=== PATIENT | male | born 1995 | race African-American/Black ===

== ENCOUNTER 2017-07-09 11:26 | Emergency (ER) | payer OTHER ==
[~2017-07-09] VITALS: Ht 177.8 cm; Wt 88.6 kg
[2017-07-09 11:27] VITALS: BP 146/78; PULSE 72; RESP 16; TEMP 98.9; O2SAT 98
--- NOTE | 2017-07-09 12:14 | PD ---
HPI Chief Complaint: Cold / Flu Symptoms Time Seen by Provider: 12:09 Travel History International Travel<30 days: No Contact w/Intl Traveler<30days: No Traveled to known affect area: No History of Present Illness HPI 22-year-old male presents to the emergency room for evaluation of chills, nausea , vomiting, diarrhea, sore throat, congestion, body aches, and nonproductive cough at all started together last night. Patient denies any objective fevers. Denies any chronic medical conditions or daily medications. He has not taken anything for symptoms. [facility] Social History Tobacco Use: No Review of Systems Except as stated in HPI: all other systems reviewed are Neg Physical Exam Narrative GENERAL: Well-nourished, well-developed male in no acute distress. Afebrile. Ambulatory. SKIN: Focused skin assessment warm/dry. HEAD: Normocephalic. EYES: No scleral icterus. No injection or drainage. NECK: Supple, trachea midline. No JVD or lymphadenopathy. ENT: Mucosa pink and moist. No significant erythema or exudates. No uvular edema. No uvular, palatal, or tonsillar deviation. Airway patent. Nasal turbinates appear normal without nasal blood, purulent drainage or septal hematoma. EARS: Bilateral pinnae and external canals appear within normal limits. Bilateral tympanic membranes without erythema, dullness or perforation. CARDIOVASCULAR: Regular rate and rhythm without murmurs, gallops, or rubs. RESPIRATORY: Breath sounds equal bilaterally. No accessory muscle use. No crackles, rales, wheezes, or rhonchi. Data Data Last Documented VS Vital Signs Date Time Temp Pulse Resp B/P (MAP) Pulse Ox O2 Delivery O2 Flow Rate FiO2 07/09/17 11:27 98.9 72 16 146/78 (100) 98 Room Air Orders Orders Influenzae A/B Antigen (07/09/17 12:09) Ed Discharge Order (07/09/17 13:09) MDM Medical Decision Making Medical Screen Exam Complete: Yes Emergency Medical Condition: Yes Medical Record Reviewed: Yes Differential Diagnosis URI, viral syndrome, pneumonia, flu Narrative Course 22-year-old otherwise healthy male presents to the emergency room for evaluation of nonproductive cough, congestion, sore throat, body aches, nausea, vomiting, and diarrhea since last night. Patient is afebrile well-appearing in the emergency room. Vital signs stable. Resting comfortably. Physical exam are reassuring. Influenza is negative. This is viral syndrome. Patient discharged with instructions to follow up with PCP or return for worsening symptoms. He understands and agrees to plan. Diagnosis Primary Impression: Viral syndrome Referrals: Primary Care Physician Additional Instructions: Rest and drink plenty of fluids. Continue [id number] cough and cold medications for symptoms. Take ibuprofen with food as directed, as needed for pain. Follow-up with a primary care physician. Return to the emergency room for worsening symptoms. Med/Other Pt SpecificInfo: Prescription(s) given Disposition: 01 DISCHARGE HOME Condition: Stable Jennifer Solomon Jul 09, 2017 12:14
== END 2017-07-09 13:23 | disposition home or self-care (01) ==
LOC: NEPK 11:26
DX: B34.9 Viral infection, unspecified (principal)
CPT/HCPCS: 87804; 99283

== ENCOUNTER 2017-10-06 08:55 | Emergency (ER) | payer OTHER ==
[~2017-10-06] VITALS: Ht 182.9 cm; Wt 100.0 kg
[2017-10-06 09:14] VITALS: BP 138/76; PULSE 68; RESP 18; TEMP 98.1; O2SAT 99
[2017-10-06 09:17] VITALS: BP 138/76; PULSE 68; RESP 18; TEMP 98.1; O2SAT 99
--- NOTE | 2017-10-06 09:26 | PD ---
HPI Chief Complaint: Bite or Sting Time Seen by Provider: 09:21 Travel History International Travel<30 days: No Contact w/Intl Traveler<30days: No Traveled to known affect area: No History of Present Illness HPI 22-year-old male was brought to the emergency room by a police cadet after he was bitten by his dog during an altercation. He is in the custody of the police cadet because of being in possession of marijuana. He was bit by his own dog. As per the patient the dog is vaccinated and can be watched. The bite wounds are mostly on his left leg. This happened about an hour prior to coming to the emergency room. There are a few open wounds. Vital signs are stable. Patient does not recall his last tetanus shot. [facility] Past Medical History Narrative Medical List of his past medical, surgical, social and family history is reviewed from the nursing note. Medical History: Denies Significant Hx ?: Not Past Surgical History Surgical History: No Previous Surgery Social History Alcohol Use: No Tobacco Use: No Substance Use: No Allergies-Medications (Allergen,Severity, Reaction): Coded Allergies: No Known Allergies (Unverified , 10/07/17) Comments No known drug allergies Reported Meds & Prescriptions Reported Meds & Active Scripts Active Mupirocin Topical (Mupirocin) 2 % Oint 1 Applic TOPICAL BID Tramadol (Tramadol HCl) 50 Mg Tab 50 Mg PO Q4H PRN Augmentin (Amoxicillin-Clavulanate) 875-125 Mg Tab 1 Tab PO BID 14 Days Ibuprofen 800 Mg Tab 800 Mg PO Q6HR PRN Narrative Medication Awaiting for the nurse to the med reconciliation. Review of Systems Except as stated in HPI: all other systems reviewed are Neg Physical Exam Narrative GENERAL: Awake, alert, moderate distress SKIN: Focused skin assessment warm/dry. Multiple small and deep punctures and laceration on the left leg distal to the knee and few in the distal thigh area. None of them are actively bleeding. One is about 2 x 2 centimeters wide with an open flap. Rest of them are smaller and superficial. There is one deeper puncture wound in the medial aspect of the distal thigh. HEAD: Atraumatic. Normocephalic. EYES: Pupils equal and round. No scleral icterus. No injection or drainage. ENT: No nasal bleeding or discharge. Mucous membranes pink and moist. NECK: Trachea midline. No JVD. CARDIOVASCULAR: Regular rate and rhythm. No murmur appreciated. RESPIRATORY: No accessory muscle use. Clear to auscultation. Breath sounds equal bilaterally. GASTROINTESTINAL: Abdomen soft, non-tender, nondistended. Hepatic and splenic margins not palpable. MUSCULOSKELETAL: No obvious deformities. No clubbing. No cyanosis. No edema. NEUROLOGICAL: Awake and alert. No obvious cranial nerve deficits. Motor grossly within normal limits. Normal speech. PSYCHIATRIC: Appropriate mood and affect; insight and judgment normal. Data Data Last Documented VS Vital Signs Date Time Temp Pulse Resp B/P (MAP) Pulse Ox O2 Delivery O2 Flow Rate FiO2 10/06/17 11:06 72 16 124/72 (89) 98 10/06/17 09:17 98.1 Room Air Orders Orders Amoxicil-Clavulanate (Augmentin) (10/06/17 09:45) Ibuprofen (Motrin) (10/06/17 09:45) Tibia/Fibula (Ap/Lat) (10/06/17 ) Knee, Complete (4vws) (10/06/17 ) Tetanus/Diphtheria Tox Adult (Tetanus/Di (10/06/17 09:45) Ed Discharge Order (10/06/17 10:31) MDM Medical Decision Making Medical Screen Exam Complete: Yes Emergency Medical Condition: Yes Medical Record Reviewed: Yes Differential Diagnosis Dog bite wound Narrative Course 10:28 AM My nurse practitioner will irrigate and repair the wounds. Please refer to her procedure note. Patient has been given a dose of Augmentin and IM tetanus. He was also given Motrin for pain control. He has been given the instructions for watching out for unknown infection. Patient will be discharged home after the procedure. There was an x-ray of the knee and tib- fib done which is negative for fracture. Per the radiologist there is some subcutaneous air. Procedures EKG Prior to Arrival: No Diagnosis Primary Impression: dog bite wound to the leg Additional Impression: Bite wound from mammal Referrals: Primary Care Physician Additional Instructions: The stitches need to be taken out in 5-7 days. Please return to the ER if the wound starts to look infected. Take the antibiotic as per the prescription direction. He needs to be watched for next 14 days. If it starts to act unusual or dies then animal control needs to be notified and you need to come back to get rabies shots. Med/Other Pt SpecificInfo: Prescription(s) given Disposition: 01 DISCHARGE HOME Condition: Stable Chet Abbasi MD Oct 06, 2017 09:26
[2017-10-06] MEDS ORDERED: AMOXICILLIN/CLAVULANATE K 500 MG TAB PO ONE (09:45)
[2017-10-06] MEDS ORDERED: TETANUS/DIPHTHERIA TOXOID ADULT 0.5 ML VIAL IM ONE (09:45)
[2017-10-06] MEDS ORDERED: IBUPROFEN 800 MG TAB PO ONE (09:45)
--- NOTE | 2017-10-06 10:09 | RADRPT ---
EXAM DATE/TIME: 10/06/2017 09:41 [facility] COMPARISON: No previous studies available for comparison. INDICATIONS : Dog Bite, Medial side of left knee. MEDICAL HISTORY : None. SURGICAL HISTORY : None. ENCOUNTER: Initial ACUITY: 1 day PAIN SCORE: 9/10 LOCATION: Left medial Left knee FINDINGS: Two view examination of the left tibia demonstrates no evidence of fracture or dislocation. Minimal subcutaneous air is present. Bony mineralization is normal. The soft tissue structures are intact. CONCLUSION: Minimal subcutis air, negative for foreign body. Knee x-rays may be of benefit.. Manav Olivier MD FACR on October 06, 2017 at 10:08 Board Certified Radiologist. This report was verified electronically.
--- NOTE | 2017-10-06 10:10 | RADRPT ---
EXAM DATE/TIME: 10/06/2017 09:50 [facility] COMPARISON: No previous studies available for comparison. INDICATIONS : Dog Bite, Medial side of Left knee MEDICAL HISTORY : None. SURGICAL HISTORY : None. ENCOUNTER: Initial ACUITY: 1 day PAIN SCORE: 6/10 LOCATION: Left medial Knee FINDINGS: Minimal air in the subcutaneous tissues. No definite air within the joint space. No radiopaque fore ign body CONCLUSION: Subcutaneous air otherwise negative. Manav Olivier MD FACR on October 06, 2017 at 10:08 Board Certified Radiologist. This report was verified electronically.
[2017-10-06] MEDS ORDERED: AUGM500T7 PO (10:31)
--- NOTE | 2017-10-06 10:41 | PD ---
Physical Exam Time Seen by Provider: 10:38 Narrative I was asked to repair the laceration to the back of the left calf and clean the wounds. Data Data Last Documented VS Vital Signs Date Time Temp Pulse Resp B/P (MAP) Pulse Ox O2 Delivery O2 Flow Rate FiO2 10/06/17 09:17 98.1 68 18 138/76 (96) 99 Room Air Orders Orders Amoxicil-Clavulanate (Augmentin) (10/06/17 09:45) Ibuprofen (Motrin) (10/06/17 09:45) Tibia/Fibula (Ap/Lat) (10/06/17 ) Knee, Complete (4vws) (10/06/17 ) Tetanus/Diphtheria Tox Adult (Tetanus/Di (10/06/17 09:45) Ed Discharge Order (10/06/17 10:31) MDM Supervised Visit with SARAH: No Narrative Course The dog bite wounds were irrigated with normal saline and cleaned with Hibiclens. The dog bite wounds to the inner left thigh were left open. See my procedure note for laceration repair. Procedures Procedure Narrative LACERATION LOCATION: Left calf LENGTH: 1.5 cm NUMBER OF STITCHES/MELLO: 2 simple interrupted sutures; sutures were placed loosely REPAIR: The area of the laceration was prepped with Betadine and sterilely draped. The laceration was infiltrated with 1% lidocaine. The wound was copiously irrigated and explored without evidence of foreign body, tendon injury or neurovascular injury. The wound was closed using 4-0 Prolene. This was a single layer repair. A sterile dressing was applied. The patient was advised to keep the dressing clean and dry. Patient tolerated the procedure well. Diagnosis Primary Impression: dog bite wound to the leg Additional Impression: Bite wound from mammal Referrals: Primary Care Physician Patient Instructions: General Instructions Departure Forms: Tests/Procedures Additional Instruction: The stitches need to be taken out in 5-7 days. Please return to the ER if the wound starts to look infected. Take the antibiotic as per the prescription direction. He needs to be watched for next 14 days. If it starts to act unusual or dies then animal control needs to be notified and you need to come back to get rabies shots. Scripts Amoxicillin-Clavulanate (Augmentin) 500-125 mg Tab 500 MG PO BID for Infection for 10 Days, TAB 0 Refills Prov: Ayleen,Shravanti R. MD 10/06/17 Disposition: 01 DISCHARGE HOME Condition: Stable Margy Quezada [facility] Oct 06, 2017 10:41
[2017-10-06 11:06] VITALS: BP 124/72
[2017-10-07] MEDS ORDERED: MUPI2OIN TOPICAL (09:55)
[2017-10-07] MEDS ORDERED: IBUP1TAB7 PO (09:55)
[2017-10-07] MEDS ORDERED: TRAM50TA PO (09:55)
[2017-10-07] MEDS ORDERED: AUGM875T3 PO (09:55)
== END 2017-10-06 11:08 | disposition home or self-care (01) ==
LOC: NEPD 08:55
DX: S81.852A Open bite, left lower leg, initial encounter (principal); W54.0XXA Bitten by dog, initial encounter; Z23 Encounter for immunization
CPT/HCPCS: 12001; 73564; 73590; 90471; 90714

== ENCOUNTER 2017-10-07 08:12 | Emergency (ER) | payer OTHER ==
[~2017-10-07] VITALS: Ht 180.3 cm; Wt 82.0 kg
[~2017-10-07 08:12] MED LIST: AUGM500T7 PO
[2017-10-07 08:14] VITALS: BP 140/65; PULSE 75; RESP 16; TEMP 98.7; O2SAT 100
[2017-10-07] MEDS ORDERED: MORPHINE SULFATE 4 MG/ML INJ IV PUSH ONE (09:15)
[2017-10-07] MEDS ORDERED: SODIUM CHLOR 0.9% 1000 ML INJ 1,000 ML IV ONE (09:15)
[2017-10-07] MEDS ORDERED: SODIUM CHLORIDE 0.9% FLUSH 10 ML FLUSH IV FLUSH PRN (09:15)
[2017-10-07] MEDS ORDERED: ONDANSETRON HCL 4 MG/2 ML VIAL IV PUSH ONE (09:15)
[2017-10-07] MEDS ORDERED: AMPICILLIN-SULBACTAM INJ 3 GM in SODIUM CHLORIDE 0.9% INJ 100 ML IV ONE (09:15)
--- NOTE | 2017-10-07 09:25 | PD ---
HPI Chief Complaint: Bite or Sting Time Seen by Provider: 08:50 Travel History International Travel<30 days: No Contact w/Intl Traveler<30days: No Traveled to known affect area: No History of Present Illness HPI 22-year-old male presents to the emergency department with complaint of swelling , redness and increased pain to a dog bite wound to his left inner thigh and calf that occurred yesterday. I did see this patient yesterday and he was under police custody when he arrived. The patient was seen by Dr. Mendoza and I did the wound irrigation and repair. The patient reports vomiting one time last night and relates it to taking the antibiotic on an empty stomach. He was released from custody late last night and turned his prescription and this morning and has not taken any more of the antibiotic, other than what was given to him yesterday in the ER. He reports subjective fever last night. Denies paresthesias, loss of sensation to the affected extremity. Has not taken any other medication or tried any other treatments to alleviate his symptoms. His tetanus was updated yesterday. Rates pain 10/10. Describes it as throbbing. No known aggravating or relieving factors. No known allergies. No primary care provider. Denies significant past medical history. Has no other medical complaints. No other modifying factors or associated signs and symptoms. PFSH Social History Alcohol Use: No Tobacco Use: No Substance Use: No Allergies-Medications (Allergen,Severity, Reaction): Coded Allergies: No Known Allergies (Unverified , 10/07/17) Reported Meds & Prescriptions Reported Meds & Active Scripts Active Mupirocin Topical (Mupirocin) 2 % Oint 1 Applic TOPICAL BID Tramadol (Tramadol HCl) 50 Mg Tab 50 Mg PO Q4H PRN Augmentin (Amoxicillin-Clavulanate) 875-125 Mg Tab 1 Tab PO BID 14 Days Ibuprofen 800 Mg Tab 800 Mg PO Q6HR PRN Review of Systems Except as stated in HPI: all other systems reviewed are Neg Physical Exam Narrative GENERAL: Well-nourished, well-developed black male patient, in no acute distress ; afebrile, nontoxic-appearing SKIN: Warm and dry. Multiple small puncture wounds noted to the left inner thigh; puncture wound to the left upper calf with sutures intact; area is surrounded with erythema, warmth to touch, and mildly edematous; minimal amount of serosanguineous drainage noted; no lymphangitis. Left lower extremity is supple and nontense with 2+ pedal pulses and sensory intact. HEAD: Atraumatic. Normocephalic. EYES: Pupils equal and round. No scleral icterus. No injection or drainage. ENT: Mucosa pink and moist. Airway patent. NECK: Trachea midline. CARDIOVASCULAR: Regular rate. RESPIRATORY: No accessory muscle use. GASTROINTESTINAL: Flat. MUSCULOSKELETAL: No obvious deformities. No clubbing. No cyanosis. No edema. NEUROLOGICAL: Awake and alert. Oriented 3. No obvious cranial nerve deficits. Motor grossly within normal limits. Normal speech. PSYCHIATRIC: Appropriate mood and affect; insight and judgment normal. Data Data Last Documented VS Vital Signs Date Time Temp Pulse Resp B/P (MAP) Pulse Ox O2 Delivery O2 Flow Rate FiO2 10/07/17 08:14 98.7 75 16 140/65 (90) 100 Orders Orders Complete Blood Count With Diff (10/07/17 09:03) Iv Access Insert/Monitor (10/07/17 09:03) Sodium Chloride 0.9% Flush (Ns Flush) (10/07/17 09:15) Blood Culture (10/07/17 09:03) Sodium Chlor 0.9% 1000 Ml Inj (Ns 1000 M (10/07/17 09:15) Ampicillin-Sulbactam Inj (Unasyn Inj) (10/07/17 09:15) Morphine Inj (Morphine Inj) (10/07/17 09:15) Ondansetron Inj (Zofran Inj) (10/07/17 09:15) Wound Culture And Gram Stain (10/07/17 09:08) Crutches (10/07/17 10:11) Ed Discharge Order (10/07/17 10:11) Wound Care (10/07/17 10:11) Labs Laboratory Tests Test 10/07/17 09:25 White Blood Count 15.6 TH/MM3 Red Blood Count 5.46 MIL/MM3 Hemoglobin 16.5 GM/DL Hematocrit 48.8 % Mean Corpuscular Volume 89.3 FL Mean Corpuscular Hemoglobin 30.2 PG Mean Corpuscular Hemoglobin Concent 33.9 % Red Cell Distribution Width 14.5 % Platelet Count 232 TH/MM3 Mean Platelet Volume 9.2 FL Neutrophils (%) (Auto) 80.2 % Lymphocytes (%) (Auto) 11.5 % Monocytes (%) (Auto) 7.8 % Eosinophils (%) (Auto) 0.1 % Basophils (%) (Auto) 0.4 % Neutrophils # (Auto) 12.6 TH/MM3 Lymphocytes # (Auto) 1.8 TH/MM3 Monocytes # (Auto) 1.2 TH/MM3 Eosinophils # (Auto) 0.0 TH/MM3 Basophils # (Auto) 0.1 TH/MM3 CBC Comment DIFF FINAL Differential Comment MDM Medical Decision Making Medical Screen Exam Complete: Yes Emergency Medical Condition: Yes Medical Record Reviewed: Yes Differential Diagnosis Dog bite wound, wound infection, treatment failure, noncompliance with treatment plan and medication Narrative Course 22-year-old male that was seen here yesterday for dog bite wound returns requesting pain medication. He was under law-enforcement custody yesterday when he was here and I irrigated and repaired the wounds. The areas intrathymic and mildly edematous with signs of infection. No purulent drainage noted. I discussed patient with Dr. Mills and he recommended CBC, blood cultures, IV Unasyn. Orders entered. Wound culture pending. Morphine and Zofran ordered. 0952: WBC 15.2. Discussed lab findings with Dr. Mills he agrees with discharge and followup tomorrow. Patient is afebrile and nontoxic-appearing. The area was marked with a surgical marker. Patient was instructed to return to the emergency department tomorrow for wound reevaluation and follow-up. Patient verbalized understanding and agreement. Patient verbalizes he is picking up his prescription of Augmentin after he leaves here. Wound care provided and dressing applied. Mupirocin ointment, tramadol, ibuprofen prescribed for home. Instructed patient to follow up with primary care provider. Patient verbalizes understanding and agreement with treatment plan. Patient is medically cleared and stable for discharge. Discussed reasons to return to the emergency department. Patient agrees with treatment plan. The patients vital signs are stable and the patient is stable for outpatient follow- up and treatment. Patient discharged home, stable and in no acute distress. Diagnosis Primary Impression: Dog bite of left lower leg with infection Qualified Codes: S81.852A - Open bite, left lower leg, initial encounter; L08.9 - Local infection of the skin and subcutaneous tissue, unspecified; W54.0XXA - Bitten by dog, initial encounter Additional Impression: Dog bite of multiple sites of left lower extremity Qualified Codes: S81.852D - Open bite, left lower leg, subsequent encounter; W54.0XXD - Bitten by dog, subsequent encounter Referrals: [facility] Primary Care Physician Patient Instructions: Acute Wound Care (DC), Animal Bite (ED), Care For Your Stitches (ED), Crutch Instructions (ED), General Instructions Additional Instructions: Ibuprofen or Tylenol as directed and as needed for pain and inflammation Ice to affected area to reduce pain and inflammation Topical antibiotic ointment as directed and as needed for wound care Antibiotics as prescribed Return to the emergency department in 24 hours for reevaluation of your wound Follow-up with primary care provider Return to the emergency department immediately for worsening of symptoms, particularly as discussed Med/Other Pt SpecificInfo: Prescription(s) given Scripts Mupirocin Topical (Mupirocin Topical) 2 % Oint 1 APPLIC TOPICAL BID for Mgmt Bacterial Infection, #1 TUBE 0 Refills Prov: Margy Quezada 10/07/17 Tramadol (Tramadol) 50 Mg Tab 50 MG PO Q4H Y for PAIN, #8 TAB 0 Refills Prov: Margy Quezada 10/07/17 Amoxicillin-Clavulanate (Augmentin) 875-125 Mg Tab 1 TAB PO BID for Infection for 14 Days, #28 TAB 0 Refills Prov: Margy QuezadaP 10/07/17 Ibuprofen (Ibuprofen) 800 Mg Tab 800 MG PO Q6HR Y for PAIN, #30 TAB 0 Refills Prov: Margy Quezada 10/07/17 Disposition: 01 DISCHARGE HOME Condition: Stable Margy Quezada Oct 07, 2017 09:25
[2017-10-07 09:49] LABS: AUTOMATED NEUTROPHIL # 12.6 TH/MM3 (1.8-7.7); BASOPHIL # 0.1 TH/MM3 (0-0.2); BASOPHIL % 0.4 % (0.0-2.0); EOSINOPHIL % 0.1 % (0.0-4.0); HEMATOCRIT 48.8 % (39.0-51.0); HEMOGLOBIN 16.5 GM/DL (13.0-17.0); LYMPH % 11.5 % (9.0-44.0); LYMPHOCYTE # 1.8 TH/MM3 (1.0-4.8); MEAN CELL VOLUME 89.3 FL (80.0-100.0); MEAN CORPUSCULAR HEMOGLOBIN 30.2 PG (27.0-34.0); MEAN CORPUSCULAR HGB CONC 33.9 % (32.0-36.0); MEAN PLATELET VOLUME 9.2 FL (7.0-11.0); MONO % 7.8 % (0.0-8.0); MONOCYTE # 1.2 TH/MM3 (0-0.9); NEUT % 80.2 % (16.0-70.0); PLATELET COUNT 232 TH/MM3 (150-450); RED BLOOD COUNT 5.46 MIL/MM3 (4.50-5.90); RED CELL DISTRIBUTION WIDTH 14.5 % (11.6-17.2); WHITE BLOOD COUNT 15.6 TH/MM3 (4.0-11.0)
[2017-10-07] MEDS ORDERED: IBUP1TAB7 PO (09:55)
[2017-10-07] MEDS ORDERED: MUPI2OIN TOPICAL (09:55)
[2017-10-07] MEDS ORDERED: TRAM50TA PO (09:55)
[2017-10-07] MEDS ORDERED: AUGM875T3 PO (09:55)
== END 2017-10-07 11:58 | disposition home or self-care (01) ==
LOC: NEPD 08:12
DX: S71.152D Open bite, left thigh, subsequent encounter (principal); S81.852D Open bite, left lower leg, subsequent encounter; L08.9 Local infection of the skin and subcutaneous tissue, unspecified; B96.89 Other specified bacterial agents as the cause of diseases classified elsewhere; W54.0XXD Bitten by dog, subsequent encounter; Z79.899 Other long term (current) drug therapy
CPT/HCPCS: 85025; 87040; 87070; 96374; 96375; 99281; E0113; J0295; J2270; J2405; J7030